=== PATIENT | female | born 1935 | race Caucasian/White ===

== ENCOUNTER → 2019-01-08 | Outpatient (CLI) | payer MEDICARE | END | disposition home or self-care (01) | LOC: PCVCCLINIC 11:00 | PROVIDERS: ATTEND Internal Medicine | DX: R07.89 Other chest pain (principal); R06.09 Other forms of dyspnea; E78.5 Hyperlipidemia, unspecified; E03.9 Hypothyroidism, unspecified; Z87.19 Personal history of other diseases of the digestive system; Z79.899 Other long term (current) drug therapy; Z79.82 Long term (current) use of aspirin | CPT/HCPCS: 36415; 80061; 93005; G0463 ==

== ENCOUNTER → 2019-01-24 | Outpatient (CLI) | payer MEDICARE ==
[~2019-01-24] MED LIST: REGADENOSON 0.4 MG/5 ML DISP.SYRIN. IV ONE
--- NOTE | 2019-01-24 09:55 | PCVCIMAG ---
APPROVED REPORT Study performed: 01/24/2019 08:12:43 EXAM: Comprehensive 2D, Doppler, and color-flow Echocardiogram Patient Location: Echo lab Room #: 2Status: routine BSA: 1.65 HR: 64 bpmBP: 132/90 mmHg Rhythm: NSR Other Information Study Quality: Adequate Indications Dyspnea Fatigue Chest Pain 2D Dimensions IVSd: 8.19 (7-11mm)LVOT Diam: 20.80 (18-24mm) LVDd: 30.49 mm PWd: 9.04 (7-11mm)Ascending Ao: 33.61 (22-36mm) LVDs: 20.58 (25-40mm) Left Atrium: 19.04 (27-40mm) Aortic Root: 21.70 mm LV Single Plane 4CH: 62.97 % LV Single Plane 2CH: 63.29 % Biplane EF: 62.0 % Volumes Left Atrial Volume (Systole) Single Plane 4CH: 56.95 mLSingle Plane 2CH: 44.09 mL Biplane LA Volume: 55.00 mLLA ESV Index: 34.00 mL/m2 Aortic Valve AoV Peak Mookie.: 1.30 m/s AO Peak Gr.: 6.77 mmHgLVOT Max P.42 mmHg LVOT Max V: 0.92 m/s SIMRAN Vmax: 2.41 cm2 AI Vmax: 5.34 m/s AI [place]: 2.82 m/s2 AI PHT: 549.27 ms Mitral Valve E/A Ratio: 0.9 MV Decel. Time: 210.12 ms MV E Max Mookie.: 0.58 m/s MV A Mookie.: 0.66 m/s IVRT: 121.11 ms TDI E/Lateral E': 9.67E/Medial E': 11.60 Medial E' Mookie.: 0.05 m/s Lateral E' Mookie.: 0.06 m/s Pulmonary Valve PV Peak Mookie.: 0.63 m/sPV Peak Gr.: 1.58 mmHg Pulmonary Vein P Vein S: 0.50 m/sP Vein A: 0.30 m/s P Vein D: 0.44 m/sP Vein A Dur.: 107.3 msec P Vein S/D Ratio: 1.14 Tricuspid Valve TR Peak Mookie.: 2.33 m/s TR Peak Gr.: 21.67 mmHg TV Vmax: 0.61 m/sPA Pressure: 29.00 mmHg Left Ventricle The left ventricle is normal size. There is normal LV segmental wall motion. There is normal left ventricular wall thickness. Left ventricular systolic function is normal. The left ventricular ejection fraction is within the normal range. LVEF is 60-65%. Mild diastolic dysfunction is present (impaired relaxation pattern). Right Ventricle The right ventricle is normal size. The right ventricular systolic function is normal. Atria Left atrium is at the upper limits of normal. The right atrium size is normal. Aortic Valve Aortic valve is trileaflet, mild sclerosis. Moderate aortic regurgitation. There is no aortic valvular stenosis. Mitral Valve The mitral valve is normal in structure. There is no mitral valve regurgitation noted. No evidence of mitral valve stenosis. Tricuspid Valve The tricuspid valve is normal in structure. Mild tricuspid regurgitation with a PA pressure of 30 mmHg. Pulmonic Valve The pulmonary valve is normal in structure. Trace pulmonic regurgitation. Great Vessels The aortic root is normal in size. The ascending aorta is normal in size. Aortic arch is normal in caliber. IVC is normal in size and collapses >50% with inspiration. Pericardium There is no pericardial effusion. There is no pleural effusion. <Conclusion> Left ventricular systolic function is normal. There is normal LV segmental wall motion. LVEF is 60-65%. Mild diastolic dysfunction Aortic valve is trileaflet, mild sclerosis, no stenosis. Moderate aortic regurgitation. The mitral valve is normal in structure. No mitral valve regurgitation. Mild tricuspid regurgitation with a pulmonary artery pressure of 30 mmHg. There is no pericardial effusion.
--- NOTE | 2019-01-24 13:13 | PCVCIMAG ---
APPROVED REPORT Imaging Protocol: Rest Tc-99m/Stress Tc-99m 1 day Study performed: 01/24/2019 09:38:37 Indication: Chest pressure, Dyspnea Patient Location: Out-Patient Stress Nurse: Jo Mccloud RN [place] Tech:Winsome Bravo [facility] Ht: 5 ft 1 in Wt: 145 lbs BSA: 1.65 m2 HR: 60 bpm BP: 178/94 mmHg BMI: 27.3 Rhythm: Sinus Rhythm, Incomplete RBBB Medical History Medical History: Hyperlipidemia, CAD Medications: ASA, Metoprolol, Protonix Allergies: No known drug allergies Cardiac Risk Factors: Age Pretest Chest Pain Characteristics: No chest pain Exercise History: Indeterminate Physical Disabilities: Arthritis Resting Data Rest SPECT myocardial perfusion imaging was performed in supine position 45 minutes following the intravenous injection of 10.2 mCi of Tc-99m Sestamibi. Time of rest injection: 0900 Date: 01/24/2019 Administration Route: IV Administration Site: Right AC Pharmacologic Stress Pharmacologic stress test was performed by injecting Regadenoson 0.4 mg IV push over 10-15 seconds immediately followed by the intravenous injection of mCi of Tc-99m Sestamibi. Time of stress injection: 1000 Date: 01/24/2019 Administration Route: IV Administration Site: Right AC Gated Stress SPECT was performed 45 minutes after stress injection. The images were gated to evaluate regional wall motion and calculate left ventricular ejection fraction. Stress Test Details Stress Test: Pharmacologic stress testing performed using 0.4 mg of regadenoson per 5 mL given IV over 10 seconds. Reason for pharmacologic stress test: arthritis and balance issues. HRMax Heart Rate (APMHR): 136 bpm Resting HR: 60 bpmTarget HR (85% APMHR): 115 bpm Max HR Achieved: 86 bpm % of APMHR: 63 Recovery HR: 77 bpm BP Resting BP: 178/94 mmHg Max BP: 160/87 mmHg Recovery BP: 172/78 mmHg ECG Resting ECG: Sinus Rhythm, Incomplete RBBB Stress ECG: Sinus Rhythm, Incomplete RBBB ST Change: None Maximum ST Deviation: 0 mm Arrhythmia: None Recovery ECG: Sinus Rhythm, Incomplete RBBB Recovery ST Change: Normal Recovery ST Deviation: 0 mm Recovery Arrhythmia: None Clinical Reason for Termination: Completed protocol Stress Symptoms: Headache Symptoms resolved with caffeine. Stress ECG Conclusion ECG: Non-ischemic Clinical: Non-ischemic Study Quality Study: Good Study Data Post stress, the left ventricular ejection was 77%.. SSS: 0 SRS: 1 SDS: 0 TID = 0.86. Perfusion No evidence of stress induced ischemia or prior myocardial infarction. Wall Motion Normal left ventricular size and function with no regional wall motion abnormalities. Nuclear Conclusion No evidence of stress induced ischemia or prior myocardial infarction. Normal left ventricular size and function with no regional wall motion abnormalities. Post stress, the left ventricular ejection was 77%. No prior study available for comparison. Interpreted by: Faisal Rivas MD Electronically Approved: 01/24/2019 12:55:02 <Conclusion> ECG: Non-ischemic Clinical: Non-ischemic
== END | disposition home or self-care (01) ==
LOC: PCVCIMAG 08:16
PROVIDERS: ATTEND Internal Medicine
DX: I08.2 Rheumatic disorders of both aortic and tricuspid valves (principal); I25.9 Chronic ischemic heart disease, unspecified; E78.5 Hyperlipidemia, unspecified
CPT/HCPCS: 78452; 93017; 93306; A9500; J2785